=== PATIENT | male | born 1995 | race Caucasian/White ===

== ENCOUNTER 2019-02-21 13:35 | Emergency (ER) | payer OTHER ==
[~2019-02-21] VITALS: Wt 78.0 kg
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
[2019-02-21 17:06] VITALS: BP 138/88; PULSE 77; RESP 18
--- NOTE | 2019-02-21 17:47 | ERD ---
ER Documentation Chief Complaint Chief Complaint SENT BY TABLEAU ADMINISTRATOR FOR COURT ORDERED FOR PSYCH EVAL; DENIES SI/HI HPI Patient is a 23-year-old male with schizophrenia who presents with request for psychiatric evaluation. The patient said that he has a court ordered mental health evaluation in order to get his child back from DCFS. He was initially involved in a verbal argument with his and DCF became involved and took the child away. He denies suicidal or homicidal ideation at this time. Upon review of old medical records this is the patient's first visit to the emergency department. His local doctors at the [facility]. ROS All systems reviewed and are negative except as per history of present illness. Medications Home Meds No Active Prescriptions or Reported Meds Allergies Allergies: Coded Allergies: No Known Allergy (Unverified , 02/21/19) PMhx/Soc Medical and Surgical Hx: pt denies Medical Hx, pt denies Surgical Hx Hx Alcohol Use: No Hx Substance Use: No Hx Tobacco Use: No Smoking Status: Unknown if ever smoked FmHx Family History: diabetes Physical Exam Vitals Vital Signs Date Temp Pulse Resp B/P (MAP) Pulse Ox O2 O2 Flow FiO2 Time Delivery Rate 02/21/19 98.2 77 18 138/88 99 Room Air 17:06 (105) 02/21/19 98.1 78 18 142/92 99 13:45 (109) Physical Exam Const: No acute distress Head: Atraumatic Eyes: Normal Conjunctiva ENT: Normal External Ears, Nose and Mouth. Neck: Full range of motion. No meningismus. Resp: Clear to auscultation bilaterally Cardio: Regular rate and rhythm, no murmurs Abd: Soft, non tender, non distended. Normal bowel sounds Skin: No petechiae or rashes Back: No midline or flank tenderness Ext: No cyanosis, or edema Neur: Awake and alert Psych: Normal Mood and Affect Procedures/MDM Smoking Cessation Therapy: Pt. was lectured for greater than 3 minutes on the health risks of continued smoking and the benefits of cessation. Patient is a 23-year-old male who presents for psychiatric evaluation. He had a psychiatric evaluation performed by Dr. Richardson. He is medically cleared and psychologically cleared he does not need 5150 hold. He can return for any worsening symptoms. He just needs a psychiatric evaluation for his court date coming up on March 07. Departure Diagnosis: Primary Impression: Psychological disorder Condition: Fair Patient Instructions: Schizophrenia, General Referrals: [facility] (PCP) Additional Instructions: Call your primary care doctor TOMORROW for an appointment during the next 1 WEEK.Tell the secretary to the vice president that you were referred from this facility.See the doctor sooner or return here if your condition worsens before your appointment time. FELICITA CAR MD Feb 21, 2019 17:47
== END 2019-02-21 17:08 | disposition home or self-care (01) ==
LOC: E/R 13:35
DX: F99 Mental disorder, not otherwise specified (principal)
CPT/HCPCS: 99282